=== PATIENT | female | born 1950 | race Caucasian/White ===

== ENCOUNTER 2019-01-10 17:32 | Emergency (ER) | payer MEDICARE ==
[2019-01-10 18:16] LABS: Bilirubin Negative (Negative); Blood, Urine Large (Negative); Clarity TURBID (Clear); Glucose, Urine (Dipstick) Negative (Negative); Leukocyte Large (Negative); Nitrite Negative (Negative); Protein, Urine (Dipstick) 100 mg/dL (Neg-Trace); Specific Gravity, Urine 1.005 (1.002-1.036); pH, Urine 6.5 (5.0-9.0)
[2019-01-10 18:19] LABS: Bacteria/HPF 4+ HPF (None Seen); Squamous Epithelial None Seen HPF (0-3)
[2019-01-10 18:23] LABS: Pathc Cast-AUWi Flag 5.16 (0-2.49)
[2019-01-10 18:31] LABS: Hyaline Casts/LPF NONE SEEN LPF (0-3 Hyaline); Manual Microscopic Reviewed? No Path Casts Seen
[2019-01-10] MEDS ORDERED: cefTRIAXone\\ROCEPHIN 500 MG VIAL ONE ×2 (19:44)
[2019-01-10] MEDS ORDERED: Lidocaine 1% PF 5 ML VIAL ONE (19:46)
[2019-01-10] MEDS ORDERED: cefTRIAXone\\ROCEPHIN 1 GM VIAL ONE (19:46)
== END 2019-01-10 20:04 | disposition home or self-care (01) ==
LOC: ERS 17:32
DX: N39.0 Urinary tract infection, site not specified (principal); E11.9 Type 2 diabetes mellitus without complications; I10 Essential (primary) hypertension; F41.9 Anxiety disorder, unspecified
CPT/HCPCS: 81003; 81015; 96372; J0696; J2001